=== PATIENT | female | born 1990 | race Caucasian/White ===

== ENCOUNTER 2016-12-20 13:16 | Inpatient (IN) | payer OTHER ==
[~2016-12-20] VITALS: Ht 172.7 cm; Wt 62.6 kg
[2016-12-20 15:16] VITALS: BP 114/50
[2016-12-20] MEDS ORDERED: TRAZODONE100 MG PO (15:53)
[2016-12-20 15:59] LABS: BASO % 0.6 % (0.0-1.0); EOS # 0.3 10*3/uL (0.0-0.4); EOS % 4.4 % (1.0-4.0); HEMATOCRIT 40.2 % (37.0-47.0); HEMOGLOBIN 13.2 g/dl (12.0-16.0); LYMPH # 1.9 10*3/uL (1.3-4.4); LYMPH % 29.4 % (27.0-41.0); MEAN CELL VOLUME 83.2 fl (81.0-99.0); MEAN CORPUSCULAR HGB 27.3 pg (27.0-31.0); MEAN CORPUSCULAR HGB CONC 32.8 g/dl (33.0-37.0); MEAN PLATELET VOLUME 9.7 fl (9.6-12.3); MONO # 0.5 10*3/uL (0.1-1.0); MONO % 8.3 % (3.0-9.0); NEUT # 3.6 10*3/uL (2.3-7.9); PLATELET COUNT AUTOMATED 273 10*3/uL (130-400); RED BLOOD COUNT 4.83 10*6/uL (4.10-5.10); RED CELL DISTRI WIDTH 13.2 % (0-14.5); WHITE BLOOD COUNT 6.4 10*3/uL (4.8-10.8)
[2016-12-20 16:00] VITALS: BP 112/56
[2016-12-20 16:06] LABS: PROTHROMBIN TIME 10.2 SECONDS (9.0-12.4)
[2016-12-20 16:13] LABS: BILIRUBIN NEGATIVE (NEGATIVE); BLOOD NEGATIVE (NEGATIVE); CLARITY SL CLOUDY (CLEAR); COLOR YELLOW (YELLOW); GLUCOSE NEGATIVE (NEGATIVE); KETONE NEGATIVE (NEGATIVE); LEUKO ESTERASE 1+ (NEGATIVE); NITRITE NEGATIVE (NEGATIVE); PH 7.5 (5.0-9.0); PROTEIN NEGATIVE (NEGATIVE)
[2016-12-20 16:15] LABS: ALBUMIN 3.6 gm/dl (3.1-4.5); ALKALINE PHOSPHATASE 83 U/L (45-117); BILIRUBIN, TOTAL 0.3 mg/dl (0.2-1.0); BUN 11 mg/dl (7-24); CARBON DIOXIDE 25 mmol/L (21-32); CHLORIDE 107 mmol/L (98-107); EST GLOM FILT AFRICAN AMERICAN > 60 ml/min; GLUCOSE 113 mg/dL (65-99); POTASSIUM 4.2 mmol/L (3.5-5.1); SGOT/AST 55 IU/L (3-35); SGPT/ALT 53 U/L (12-78); SODIUM 141 mmol/L (136-145); TOTAL PROTEIN 7.6 gm/dL (6.4-8.2)
[2016-12-20 16:20] LABS: BACTERIA 1+; URINE REFLEX COMMENT YES (NO)
[2016-12-20 16:29] LABS: URINE AMPHETAMINES < 1000 (1000ng/ml); URINE BARBITURATES < 200 (200ng/ml); URINE COCAINE > 300 (300ng/ml)
[2016-12-21] VITALS: BP 101/48
[2016-12-21 08:00] VITALS: BP 90/40
[2016-12-21 16:00] VITALS: BP 92/43
[2016-12-21 20:00] VITALS: BP 96/50
[2016-12-22] VITALS: BP 100/54
[2016-12-22 08:00] VITALS: BP 92/66
[2016-12-22 12:00] VITALS: BP 96/66
[2016-12-22 16:50] VITALS: BP 95/52
[2016-12-22 20:00] VITALS: BP 100/60
[2016-12-23] VITALS: BP 98/54
[2016-12-23 06:36] LABS: BASO % 0.5 % (0.0-1.0); EOS # 0.3 10*3/uL (0.0-0.4); EOS % 5.6 % (1.0-4.0); HEMATOCRIT 37.8 % (37.0-47.0); HEMOGLOBIN 12.2 g/dl (12.0-16.0); LYMPH # 2.8 10*3/uL (1.3-4.4); LYMPH % 50.4 % (27.0-41.0); MEAN CORPUSCULAR HGB 27.1 pg (27.0-31.0); MEAN CORPUSCULAR HGB CONC 32.3 g/dl (33.0-37.0); MEAN PLATELET VOLUME 10.4 fl (9.6-12.3); MONO # 0.4 10*3/uL (0.1-1.0); MONO % 7.8 % (3.0-9.0); NEUT % 35.3 % (47.0-73.0); PLATELET COUNT AUTOMATED 252 10*3/uL (130-400); RED CELL DISTRI WIDTH 13.4 % (0-14.5); WHITE BLOOD COUNT 5.5 10*3/uL (4.8-10.8)
[2016-12-23 07:01] LABS: EST GLOM FILT AFRICAN AMERICAN > 60 ml/min
[2016-12-23 08:00] VITALS: BP 100/52
[2016-12-23] MEDS ORDERED: SMZ-TMP 400 MG-1 TAB PO (08:24)
[2016-12-23] MEDS ORDERED: ZOFRAN 4 MG ED2 TAB PO (08:24)
[2016-12-23] MEDS ORDERED: ATARAX,VISTARIL50 MG PO (08:24)
[2016-12-23 12:00] VITALS: BP 98/52
== END 2016-12-23 11:56 | disposition home or self-care (01) | DRG 897 ==
LOC: 4E 13:16
PROVIDERS: Internal Medicine
DX: F11.23 Opioid dependence with withdrawal (principal); N39.0 Urinary tract infection, site not specified; R94.5 Abnormal results of liver function studies; F14.90 Cocaine use, unspecified, uncomplicated; F17.200 Nicotine dependence, unspecified, uncomplicated; F41.9 Anxiety disorder, unspecified; G25.81 Restless legs syndrome; Z91.018 Allergy to other foods; Z79.899 Other long term (current) drug therapy

== ENCOUNTER 2017-02-17 10:53 | Inpatient (IN) | payer OTHER ==
[~2017-02-17] VITALS: Ht 172.7 cm; Wt 60.8 kg
[~2017-02-17 10:53] MED LIST: ATARAX,VISTARIL50 MG PO; SMZ-TMP 400 MG-1 TAB PO; TRAZODONE100 MG PO; ZOFRAN 4 MG ED2 TAB PO
[2017-02-17 12:15] VITALS: BP 109/69
[2017-02-17 13:01] LABS: BASO % 0.6 % (0.0-1.0); EOS # 0.2 10*3/uL (0.0-0.4); EOS % 2.3 % (1.0-4.0); HEMATOCRIT 39.9 % (37.0-47.0); HEMOGLOBIN 13.2 g/dl (12.0-16.0); LYMPH # 2.5 10*3/uL (1.3-4.4); LYMPH % 38.1 % (27.0-41.0); MEAN CELL VOLUME 82.3 fl (81.0-99.0); MEAN CORPUSCULAR HGB 27.2 pg (27.0-31.0); MEAN CORPUSCULAR HGB CONC 33.1 g/dl (33.0-37.0); MEAN PLATELET VOLUME 9.9 fl (9.6-12.3); MONO # 0.5 10*3/uL (0.1-1.0); MONO % 6.9 % (3.0-9.0); NEUT # 3.4 10*3/uL (2.3-7.9); NEUT % 51.8 % (47.0-73.0); PLATELET COUNT AUTOMATED 269 10*3/uL (130-400); RED BLOOD COUNT 4.85 10*6/uL (4.10-5.10); RED CELL DISTRI WIDTH 13.1 % (0-14.5); WHITE BLOOD COUNT 6.5 10*3/uL (4.8-10.8)
[2017-02-17 13:08] LABS: PROTHROMBIN TIME 10.6 SECONDS (9.0-12.4)
[2017-02-17 13:17] LABS: ALBUMIN 3.7 gm/dl (3.1-4.5); ALKALINE PHOSPHATASE 80 U/L (45-117); BILIRUBIN, TOTAL 0.4 mg/dl (0.2-1.0); BUN 8 mg/dl (7-24); CARBON DIOXIDE 26 mmol/L (21-32); CHLORIDE 108 mmol/L (98-107); EST GLOM FILT AFRICAN AMERICAN > 60 ml/min; GLUCOSE 96 mg/dL (65-99); POTASSIUM 4.1 mmol/L (3.5-5.1); SGOT/AST 25 IU/L (3-35); SGPT/ALT 29 U/L (12-78); SODIUM 142 mmol/L (136-145); TOTAL PROTEIN 7.8 gm/dL (6.4-8.2)
[2017-02-17 13:49] LABS: BILIRUBIN NEGATIVE (NEGATIVE); BLOOD NEGATIVE (NEGATIVE); CLARITY CLEAR (CLEAR); COLOR YELLOW (YELLOW); GLUCOSE NEGATIVE (NEGATIVE); KETONE NEGATIVE (NEGATIVE); LEUKO ESTERASE 1+ (NEGATIVE); NITRITE NEGATIVE (NEGATIVE); PH 5.5 (5.0-9.0); PROTEIN NEGATIVE (NEGATIVE); SPECIFIC GRAVITY <= 1.005 (1.005-1.030); UROBILINOGEN 0.2 E.U./dl (0.2-1.0)
[2017-02-17 13:54] LABS: URINE AMPHETAMINES < 1000 (1000ng/ml); URINE BARBITURATES < 200 (200ng/ml); URINE COCAINE > 300 (300ng/ml)
[2017-02-17 14:00] VITALS: BP 90/54
[2017-02-17 14:05] LABS: RBC 0-2 rbc/hpf (0-2); URINE REFLEX COMMENT YES (NO)
[2017-02-17 16:00] VITALS: BP 90/55
[2017-02-17 20:00] VITALS: BP 112/63
[2017-02-18] VITALS: BP 97/48
[2017-02-18 04:00] VITALS: BP 98/54
[2017-02-18 08:00] VITALS: BP 91/50
[2017-02-18 12:00] VITALS: BP 110/48
[2017-02-18 16:00] VITALS: BP 85/37
[2017-02-18 20:00] VITALS: BP 89/50
[2017-02-19] VITALS: BP 87/36
[2017-02-19 08:00] VITALS: BP 116/74; BP 128/80
[2017-02-19 12:00] VITALS: BP 108/66
[2017-02-19 16:00] VITALS: BP 100/52
[2017-02-19 20:00] VITALS: BP 98/49
[2017-02-20] VITALS: BP 115/45
[2017-02-20 07:29] LABS: BASO % 0.3 % (0.0-1.0); EOS # 0.2 10*3/uL (0.0-0.4); EOS % 4.2 % (1.0-4.0); HEMATOCRIT 38.4 % (37.0-47.0); LYMPH # 2.9 10*3/uL (1.3-4.4); MEAN CELL VOLUME 81.5 fl (81.0-99.0); MEAN CORPUSCULAR HGB 27.6 pg (27.0-31.0); MEAN CORPUSCULAR HGB CONC 33.9 g/dl (33.0-37.0); MEAN PLATELET VOLUME 10.2 fl (9.6-12.3); MONO # 0.4 10*3/uL (0.1-1.0); MONO % 6.6 % (3.0-9.0); NEUT # 2.1 10*3/uL (2.3-7.9); NEUT % 37.2 % (47.0-73.0); PLATELET COUNT AUTOMATED 237 10*3/uL (130-400); RED BLOOD COUNT 4.71 10*6/uL (4.10-5.10); RED CELL DISTRI WIDTH 13.4 % (0-14.5); WHITE BLOOD COUNT 5.7 10*3/uL (4.8-10.8)
[2017-02-20 07:41] LABS: EST GLOM FILT AFRICAN AMERICAN > 60 ml/min
[2017-02-20 09:00] VITALS: BP 112/58
[2017-02-20] MEDS ORDERED: ZOFRAN4 MG PO (13:30)
[2017-02-20] MEDS ORDERED: ATARAX,VISTARIL50 MG PO (13:30)
== END 2017-02-20 15:47 | disposition home or self-care (01) | DRG 896 ==
LOC: 5E 10:53
PROVIDERS: Internal Medicine
DX: F11.23 Opioid dependence with withdrawal (principal); G93.41 Metabolic encephalopathy; B18.2 Chronic viral hepatitis C; F14.10 Cocaine abuse, uncomplicated; F17.200 Nicotine dependence, unspecified, uncomplicated; F41.9 Anxiety disorder, unspecified; R94.5 Abnormal results of liver function studies; Z91.018 Allergy to other foods

== ENCOUNTER 2017-05-03 11:13 | Inpatient (IN) | payer OTHER ==
[~2017-05-03] VITALS: Ht 172.7 cm; Wt 57.7 kg
[~2017-05-03 11:13] MED LIST changes: +ZOFRAN4 MG PO
--- NOTE | 2017-05-03 13:20 | NUR ---
26 year old FEMALE admitted to room # 532 for stabilization. Reports an addiction to HEROIN,CRACK COCAINE last used 48 hours prior to admission. Compliant with admission procedure. Patient denies any anxiety, but is unable to sit still, taps toes to floor continuously, looks about room, unable to focus eyes on nurse during interview. See assessment forms for additional information about patient status.
[2017-05-03 13:39] VITALS: BP 109/60
--- NOTE | 2017-05-03 13:44 | NUR ---
DR. TALAMANTES INFORMED PATIENT WAS IN HER ROOM.
[2017-05-03 14:00] LABS: BILIRUBIN NEGATIVE (NEGATIVE); BLOOD NEGATIVE (NEGATIVE); CLARITY CLEAR (CLEAR); COLOR YELLOW (YELLOW); GLUCOSE NEGATIVE (NEGATIVE); KETONE NEGATIVE (NEGATIVE); LEUKO ESTERASE NEGATIVE (NEGATIVE); NITRITE NEGATIVE (NEGATIVE); PH 5.5 (5.0-9.0); SPECIFIC GRAVITY >= 1.030 (1.005-1.030); UROBILINOGEN 0.2 E.U./dl (0.2-1.0)
[2017-05-03 14:07] LABS: URINE AMPHETAMINES < 1000 (1000ng/ml); URINE BARBITURATES < 200 (200ng/ml); URINE BENZODIAZEPINES < 200 (200ng/ml); URINE CANNABINOIDS (THC) < 50 (50ng/ml); URINE COCAINE > 300 (300ng/ml); URINE METHADONE < 300 (300ng/ml); URINE OPIATES > 300 (300ng/ml)
[2017-05-03 14:11] LABS: URINE PHENCYCLIDINE < 25 (25ng/ml)
[2017-05-03 14:16] LABS: BASO % 0.5 % (0.0-1.0); EOS # 0.3 10*3/uL (0.0-0.4); HEMATOCRIT 39.1 % (37.0-47.0); HEMOGLOBIN 12.8 g/dl (12.0-16.0); LYMPH # 2.5 10*3/uL (1.3-4.4); LYMPH % 33.2 % (27.0-41.0); MEAN CELL VOLUME 82.1 fl (81.0-99.0); MEAN CORPUSCULAR HGB 26.9 pg (27.0-31.0); MEAN CORPUSCULAR HGB CONC 32.7 g/dl (33.0-37.0); MEAN PLATELET VOLUME 9.6 fl (9.6-12.3); MONO # 0.6 10*3/uL (0.1-1.0); MONO % 7.9 % (3.0-9.0); NEUT # 4.1 10*3/uL (2.3-7.9); PLATELET COUNT AUTOMATED 295 10*3/uL (130-400); RED BLOOD COUNT 4.76 10*6/uL (4.10-5.10); RED CELL DISTRI WIDTH 13.9 % (0-14.5); WHITE BLOOD COUNT 7.6 10*3/uL (4.8-10.8)
[2017-05-03 14:31] LABS: ALBUMIN 3.5 gm/dl (3.1-4.5); ALKALINE PHOSPHATASE 95 U/L (45-117); BUN 9 mg/dl (7-24); CHLORIDE 102 mmol/L (98-107); CREATININE 0.82 mg/dL (0.55-1.02); LIPASE 85 U/L (73-393); POTASSIUM 3.7 mmol/L (3.5-5.1); SGOT/AST 37 IU/L (3-35); SGPT/ALT 30 U/L (12-78); SODIUM 138 mmol/L (136-145)
[2017-05-03 14:35] LABS: BETA-HCG, QUANT < 1.0 mIU/mL (1-3); ETHYL ALCOHOL < 3.0 mg/dl (<3)
--- NOTE | 2017-05-03 15:15 | NUR ---
PT GIVEN VISTARIL AND REQUIP PO FOR SYMPTOMS OF ANXIETY AND RESTLESS LEGS. WILL MONITOR FOR EFFECTIVENESS. CALL LIGHT IN REACH.
[2017-05-03] MEDS ORDERED: NEURONTIN600 MG PO (15:27)
[2017-05-03 15:43] VITALS: BP 109/60
--- NOTE | 2017-05-03 16:15 | NUR ---
VISTARIL AND REQUIP EFFECTIVE. NO COMPLAINTS AT THIS TIME. PT RESTING IN BED. CALL LIGHT IN REACH.
[2017-05-03 16:41] VITALS: BP 101/39
--- NOTE | 2017-05-03 17:46 | NUR ---
DR. TALAMANTES NOTIFIED OF PT LEFT TOES, DECLINED TO GIVE PODIATRY CONSULT AT THIS TIME.
[2017-05-03 20:00] VITALS: BP 108/53
[2017-05-04] VITALS: BP 93/46
--- NOTE | 2017-05-04 03:51 | NUR ---
PATIENT MEDICATED WITH ROBAXIN,VISTARIL AND REQUIP FOR C/O MUSCLE ACHINESS, RESTLESS LEGS AND ANXIETY. SEE EMAR. REINFORCED USE OF CALL LIGHT.
[2017-05-04 04:00] VITALS: BP 100/50
[2017-05-04 08:00] VITALS: BP 99/62
--- NOTE | 2017-05-04 12:32 | NUR ---
PRN BENTYL GIVEN FOR STOMACH DISCOMFORT.
--- NOTE | 2017-05-04 13:30 | NUR ---
PRN BENTYL EFFECTIVE, PT DENIES ABDOMINAL DISCOMFORT AND IS EATING SOME CAKE.
--- NOTE | 2017-05-04 15:51 | NUR ---
D/C PLANNING: PATIENT WANTS TO DO CLOTH DOFFER TREATMENT. PATIENT WAS REFERRED TO [facility] [place] OR [facility]. 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
[2017-05-04 16:00] VITALS: BP 117/68
--- NOTE | 2017-05-04 16:06 | NUR ---
PRN MOTRIN GIVEN FOR 01/30 TOOTHACHE.
--- NOTE | 2017-05-04 16:07 | NUR ---
PRN VISTARIL GIVEN FOR PT REPORT ANXIETY.
--- NOTE | 2017-05-04 17:07 | NUR ---
PRN VISTARIL MINIMALLY EFFECTIVE, PT RESTING MORE COMFORTABLY.
--- NOTE | 2017-05-04 17:07 | NUR ---
PRN MOTRIN MINIMALLY EFFECTIVE FOR TOOTHACHE, PT REPORTS PAIN AT A 3-4/10.
--- NOTE | 2017-05-05 00:10 | NUR ---
TRAZODONE GIVEN PER PRN ORDER FOR INABILITY TO SLEEP. SEE EMAR. REINFORCED USE OF CALL LIGHT.
--- NOTE | 2017-05-05 00:25 | NUR ---
PATIENT REFUSING TO HAVE VITAL SIGNS TAKEN. STATED SHE WAS JUST STARTING TO FALL ASLEEP AND DID NOT WANT TO BE BOTHERED.
--- NOTE | 2017-05-05 14:03 | NUR ---
prn vistaril taken for anxiety.
[2017-05-05 14:07] VITALS: BP 104/46
--- NOTE | 2017-05-05 15:05 | NUR ---
PRN VISTARIL MINIMALLY EFFECTIVE, PT APPEARS TO BE RESTING COMFORTABLY.
--- NOTE | 2017-05-05 16:03 | NUR ---
D/C PLANNING: PATIENT WABNTED TO DO CUSTODIAL TREATMENT. PATIENT WAS REFERRED TO [facility] AND [facility]. IT WAS PATIENT'S RESPONSIBILITY TO CALL TO DO A PHONE ASSESSMENT OVER THE PHONE. PATIENT WAS PROVIDED WITH PHONE NUMBERS. PATIENT WILL ALSO NEED TRANSPORTATION SET UP UPON DISCHARGE. 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
[2017-05-05 16:42] VITALS: BP 105/51
--- NOTE | 2017-05-05 21:08 | NUR ---
PATIENT MEDICATED WITH TRAZODONE, ROBAXIN AND VISTARIL PER PATIENT REQUEST AND PRN ORDER FOR C/O INABILITY TO SLEEP, MUSCLE ACHINESS AND ANXIETY. SEE EMAR. REINFORCED USE OF CALL LIGHT.
--- NOTE | 2017-05-05 22:33 | NUR ---
Patient resting. Responding to scheduled medications with fewer complaints of pain and anxiety.
[2017-05-06] VITALS: BP 120/81
[2017-05-06 08:00] VITALS: BP 93/77
[2017-05-06] MEDS ORDERED: NATURE'S BLEND F1 MG PO (09:45)
[2017-05-06] MEDS ORDERED: NATURE'S BLEND100 M2 PO (09:45)
[2017-05-06] MEDS ORDERED: THERA TABLET400 MCG PO (09:45)
--- NOTE | 2017-05-06 10:01 | NUR ---
PT MEDICATED WITH ROBAXIN FOR MUSCLE ACHES AND VISTARIL FOR ANXIETY. WILL MONITOR
--- NOTE | 2017-05-06 11:47 | NUR ---
ROBAXIN AND VISTARIL EFFECTIVE, WILL MONITOR
--- NOTE | 2017-05-06 12:08 | NUR ---
Discharge instructions reviewed with patient/family. Patient receptive and verbalizes understanding. Follow-up care arranged. Written instructions given to patient/family. JOSE PRATHER
== END 2017-05-06 12:08 | disposition home or self-care (01) | DRG 897 ==
LOC: 5E 11:13
PROVIDERS: Internal Medicine; ADMIT Emergency Medicine
DX: F11.23 Opioid dependence with withdrawal (principal); Q21.1 Atrial septal defect; B18.2 Chronic viral hepatitis C; F41.9 Anxiety disorder, unspecified; R20.2 Paresthesia of skin; F14.90 Cocaine use, unspecified, uncomplicated; R73.03 Prediabetes; Z91.018 Allergy to other foods; Z79.899 Other long term (current) drug therapy; Z83.3 Family history of diabetes mellitus; Z82.49 Family history of ischemic heart disease and other diseases of the circulatory system; Z84.89 Family history of other specified conditions